=== PATIENT | female | born 1990 | race African-American/Black ===

== ENCOUNTER 2017-11-30 03:34 | Emergency (ER) | payer MEDICAID ==
[~2017-11-30] VITALS: Ht 167.6 cm; Wt 72.7 kg
[2017-11-30 03:40] VITALS: Ht 167.6 cm; Wt 72.7 kg
[2017-11-30 04:01] LABS: HCG URINE NEGATIVE (NEGATIVE)
[2017-11-30 04:03] LABS: APPEARANCE CLOUDY (CLEAR); BILIRUBIN NEGATIVE (NEGATIVE); COLOR RED (YELLOW); GLUCOSE NEGATIVE (NEGATIVE); KETONE NEGATIVE (NEGATIVE); NITRITE NEGATIVE (NEGATIVE); PROTEIN 2+ mg/dL (NEGATIVE); SPECIFIC GRAVITY 1.025 (1.005-1.020); UROBILINOGEN NORMAL (NORMAL)
[2017-11-30 04:08] LABS: BACTERIA MODERATE /hpf (NONE SEEN); EPITHELIAL CELLS 0-5 /hpf (0-5); MUCUS <1+ /lpf (NONE SEEN); WHITE CELLS - URINE 0-5 /hpf (0-5)
[2017-11-30] MEDS ORDERED: VIBRAMYCIN 100100 MG PO (04:11)
[2017-11-30] MEDS ORDERED: FLAGYL500 MG PO (04:11)
[2017-11-30 04:35] VITALS: BP 122/74
== END 2017-11-30 04:39 | disposition home or self-care (01) ==
LOC: D.ER 03:34
PROVIDERS: Emergency Medicine
DX: Z20.2 Contact with and (suspected) exposure to infections with a predominantly sexual mode of transmission (principal); R10.30 Lower abdominal pain, unspecified

== ENCOUNTER 2018-08-17 22:54 | Emergency (ER) | payer OTHER ==
[~2018-08-17] VITALS: Ht 167.6 cm; Wt 102.3 kg
[~2018-08-17 22:54] MED LIST: FLAGYL500 MG PO; VIBRAMYCIN 100100 MG PO
[2018-08-17 22:57] VITALS: BP 160/89; Ht 167.6 cm; Wt 102.3 kg
[2018-08-17 23:38] LABS: APPEARANCE CLEAR (CLEAR); COLOR YELLOW (YELLOW); GLUCOSE NEGATIVE (NEGATIVE); KETONE NEGATIVE (NEGATIVE); NITRITE NEGATIVE (NEGATIVE); PROTEIN NEGATIVE (NEGATIVE); SPECIFIC GRAVITY 1.015 (1.005-1.020)
[2018-08-17 23:39] LABS: BILIRUBIN NEGATIVE (NEGATIVE)
[2018-08-17 23:40] LABS: BACTERIA MODERATE /hpf (NONE SEEN); EPITHELIAL CELLS 0-5 /hpf (0-5); RED CELLS - URINE 0-5 /hpf (0-5); WHITE CELLS - URINE 0-5 /hpf (0-5)
[2018-08-18] MEDS ORDERED: DOXYCYCLINE HY100 M2 PO (00:23)
== END 2018-08-18 00:54 | disposition home or self-care (01) ==
LOC: D.ER 22:54
PROVIDERS: Family Medicine
DX: N89.8 Other specified noninflammatory disorders of vagina (principal); B37.9 Candidiasis, unspecified

== ENCOUNTER 2019-09-26 16:38 | Emergency (ER) | payer OTHER ==
[~2019-09-26] VITALS: Ht 167.6 cm; Wt 102.3 kg
[~2019-09-26 16:38] MED LIST changes: +DOXYCYCLINE HY100 M2 PO
[2019-09-26 17:23] VITALS: BP 139/95; Ht 167.6 cm; Wt 102.3 kg
[2019-09-26] MEDS ORDERED: LIORESAL 10 MG10 MG PO (19:54)
[2019-09-26] MEDS ORDERED: DICLOFENAC SODI50 MG PO (19:54)
== END 2019-09-26 21:12 | disposition home or self-care (01) ==
LOC: D.ER 16:38
DX: S16.1XXA Strain of muscle, fascia and tendon at neck level, initial encounter (principal); V89.2XXA Person injured in unspecified motor-vehicle accident, traffic, initial encounter; Y93.9 Activity, unspecified; Y92.9 Unspecified place or not applicable; M25.511 Pain in right shoulder; R51 Headache; M54.2 Cervicalgia

== ENCOUNTER 2020-07-27 08:59 | Emergency (ER) | payer OTHER ==
[~2020-07-27] VITALS: Ht 167.6 cm; Wt 104.5 kg
[~2020-07-27 08:59] MED LIST changes: +DICLOFENAC SODI50 MG PO; +LIORESAL 10 MG10 MG PO
[2020-07-27 09:08] VITALS: Ht 167.6 cm; Wt 104.5 kg
[2020-07-27 09:47] LABS: BILIRUBIN NEGATIVE (NEGATIVE); KETONE NEGATIVE mg/dL (< 1+); NITRITE NEGATIVE (NEGATIVE); PH 5.5 (5.0-8.0); UROBILINOGEN NORMAL mg/dL (< 2)
[2020-07-27 09:52] LABS: AMORPHOUS SEDIMENT MANY LPF (<FEW)
[2020-07-27 09:52] LABS: BASOPHILS 0.6 % (0-2); EOSINOPHILS 1.7 % (0-7); HEMATOCRIT 41.8 % (36.0-48.0); HEMOGLOBIN 13.6 g/dL (12-16); MCH 30.4 pg (26.0-34.0); MCHC 32.5 g/dL (31.0-37.0); MCV 93.3 fL (80.0-100.0); MEAN PLATELET VOLUME 8.2 fL (7.4-10.4); NEUTROPHILS 66.7 % (40-80); PLATELET COUNT 230 10x3/uL (130-400); RBC 4.48 10x6/uL (4.00-5.40); RDW 14.2 % (11.5-14.5); WBC 8.7 10x3/uL (4.8-10.8)
[2020-07-27 09:53] LABS: BACTERIA MODERATE HPF (<MOD); WHITE CELLS - URINE 0-5 HPF (0-4)
[2020-07-27 09:54] LABS: HCG URINE NEGATIVE (NEGATIVE)
[2020-07-27 10:08] LABS: CALC OSMOLALITY 285 mosm/kg (275-300); CARBON DIOXIDE 19.9 mmol/L (21.0-32.0); CHLORIDE - SERUM 108 mmol/L (98-107); GLUCOSE 91 mg/dL (74-106); POTASSIUM - SERUM 3.9 mmol/L (3.5-5.1); SODIUM 144 mmol/L (136-145); UREA NITROGEN 9 mg/dL (7-18); eGFR NON AFRICAN AMERICAN 70 mL/min (90-120)
[2020-07-27 10:09] LABS: CALCIUM 8.8 mg/dL (8.5-10.1)
[2020-07-27 10:16] LABS: ALBUMIN 4.6 g/dL (3.4-5.0); ALKALINE PHOSPHATASE 72 U/L (30-120); ALT (SGPT) 19 U/L (10-68); AMYLASE - SERUM 58 U/L (25-115); BILIRUBIN - TOTAL 0.39 mg/dL (0.2-1.3); LIPASE 72 U/L (73-393); PROTEIN - SERUM 7.9 g/dL (6.4-8.2)
[2020-07-27 10:17] LABS: TROPONIN-I < 0.017 ng/mL (0.000-0.060)
[2020-07-27] MEDS ORDERED: CEPHALEXIN500 M1 PO (11:32)
[2020-07-27] MEDS ORDERED: MACROBID100 MG PO (11:32)
[2020-07-27 15:13] VITALS: BP 132/86
== END 2020-07-27 15:14 | disposition home or self-care (01) ==
LOC: D.ER 08:59
PROVIDERS: Family Medicine
DX: R10.31 Right lower quadrant pain (principal); N93.9 Abnormal uterine and vaginal bleeding, unspecified; N85.8 Other specified noninflammatory disorders of uterus